=== PATIENT | male | born 2005 | race African-American/Black ===

== ENCOUNTER 2023-07-08 23:08 | Emergency (ER) | payer MEDICAID ==
[~2023-07-08] VITALS: Ht 195.6 cm; Wt 90.5 kg
[2023-07-08 23:13] VITALS: PULSE 82
[2023-07-08 23:43] VITALS: BP 118/58; RESP 18; TEMP 97.8; O2SAT 100
[2023-07-08] MEDS ORDERED: AMOX-494 MT (23:51)
[2023-07-08] MEDS ORDERED: IBUP-2029 MT (23:51)
== END 2023-07-09 00:08 | disposition home or self-care (01) ==
LOC: ER 23:08
DX: H92.02 Otalgia, left ear (principal); K08.89 Other specified disorders of teeth and supporting structures
CPT/HCPCS: 99283

== ENCOUNTER 2025-06-06 13:42 | Emergency (ER) | payer MEDICAID ==
[~2025-06-06] VITALS: Ht 193 cm; Wt 93.0 kg
[~2025-06-06 13:42] MED LIST: AMOX-494 MT; IBUP-2029 MT
[2025-06-06 13:49] VITALS: TEMP 36.9; O2SAT 99
[2025-06-06] MEDS ORDERED: CETI-341 PO (15:26)
[2025-06-06] MEDS ORDERED: FLUT9.9S BOTHNSTRLS (15:26)
[2025-06-06] MEDS ORDERED: LIDO-53 TP (15:26)
[2025-06-06] MEDS ORDERED: IBUP-2029 MT (15:26)
[2025-06-06] MEDS: LIDOCAINE 5% PATCH TOP SCH (15:45)
[2025-06-06 15:46] VITALS: BP 112/67; PULSE 61; RESP 16; O2SAT 100
== END 2025-06-06 15:50 | disposition home or self-care (01) ==
LOC: ER 13:42
DX: J30.9 Allergic rhinitis, unspecified (principal); R07.89 Other chest pain; R09.81 Nasal congestion
CPT/HCPCS: 71046; 99283